=== PATIENT | female | born 1980 | race African-American/Black ===

== ENCOUNTER 2019-04-28 14:11 | Emergency (ER) | payer BC ==
[~2019-04-28] VITALS: Ht 170.2 cm; Wt 103.0 kg
[2019-04-28] MEDS ORDERED: IV NORMAL SALINE 1000ML BAG 1,000 ML IV SCH (14:54)
[2019-04-28] MEDS ORDERED: ONDANSETRON PF 4 MG/2 ML VIAL. IV ONE (15:00)
[2019-04-28] MEDS ORDERED: FAMOTIDINE 20 MG/2 ML VIAL IVP ONE (15:00)
[2019-04-28 15:12] LABS: BASO # 0.1 x10^3/uL (0.0-0.2); BASO % 2 % (0-3); EOS # 0.2 x10^3/uL (0.0-0.7); EOS % 4 % (0-3); HEMATOCRIT 34.2 % (36.0-47.0); HEMOGLOBIN 10.9 g/dL (12.0-15.5); LYMPH # 2.1 x10^3/uL (1.0-4.8); LYMPH % 37 % (24-48); MEAN CORPUSCULAR HEMOGLOBIN 22 pg (25-35); MEAN CORPUSCULAR HGB CONC 32 g/dL (31-37); MEAN CORPUSCULAR VOLUME 68 fL (79-100); MONO # 0.6 x10^3/uL (0.0-1.1); MONO % 11 % (0-9); NEUT # 2.6 x10^3/uL (1.8-7.7); NEUT % 46 % (31-73); PLATELET COUNT 417 x10^3/uL (140-400); RED BLOOD COUNT 5.05 x10^6/uL (3.50-5.40); RED CELL DISTRIBUTION WIDTH 15.3 % (11.5-14.5); WHITE BLOOD COUNT 5.6 x10^3/uL (4.0-11.0)
[2019-04-28 15:16] LABS: BILIRUBIN,URINE NEGATIVE (NEG); CLARITY,URINE CLEAR; COLOR,URINE YELLOW; NITRITE,URINE NEGATIVE (NEG); PH,URINE 6.5; PROTEIN,URINE NEGATIVE (NEG-TRACE)
--- NOTE | 2019-04-28 15:16 | PHYS DOC ---
Past Medical History Past Medical History: Diabetes-Type II Additional Past Surgical Histo: "foot surgery" Alcohol Use: None Adult General Chief Complaint Chief Complaint: GI PROBLEM HPI HPI Patient is a 39 year old female who presents with states 2 weeks ago she began having epigastric sharp pain and nausea and vomiting. She states she then got better. He states last night she ate cupcakes and went out to eat and had fried food and pizza wanings for her birthday. She states she began having came epigastric pain that is sharp and started nausea and vomiting again. States she's gone and vomited multiple times. She rates her pain an 8 out of 10. Review of Systems Review of Systems GI: Epigastric abdominal pain, nausea, vomiting, denies bloody stools or diarrhea [] ] All other systems were reviewed and found to be within normal limits, except as documented in this note. Current Medications Current Medications Current Medications Medications (Trade) Dose Ordered Sig/Kory Start Time Stop Time Status Last Admin Dose Admin Famotidine (Pepcid Vial) 20 mg 1X ONCE 04/28/19 15:00 04/28/19 15:01 DC 04/28/19 15:07 20 MG Iohexol (Omnipaque 300 Mg/ml) 75 ml 1X ONCE 04/28/19 15:45 04/28/19 15:46 DC 04/28/19 15:43 75 ML Multi-Ingredient Mouthwash/Gargle (Gi Cocktail) 20 ml 1X ONCE 04/28/19 16:45 04/28/19 16:46 DC Ondansetron HCl (Zofran) 4 mg 1X ONCE 04/28/19 16:45 04/28/19 16:46 DC Sodium Chloride 1,000 ml @ 1,000 mls/hr Q1H 04/28/19 14:54 04/28/19 15:53 DC 04/28/19 15:06 1,000 MLS/HR Allergies Allergies Allergies Coded Allergies Type Severity Reaction Last Updated Verified Sulfa (Sulfonamide Antibiotics) Allergy Mild rash 04/28/19 Yes Physical Exam Physical Exam Constitutional: Well developed, well nourished, no acute distress, non-toxic appearance. [] HENT: Normocephalic, atraumatic, bilateral external ears normal, oropharynx moist, no oral exudates, nose normal. [] Eyes: PERRLA, EOMI, conjunctiva normal, no discharge. [] Neck: Normal range of motion, no tenderness, supple, no stridor. [] Cardiovascular:Heart rate regular rhythm, no murmur [] Lungs & Thorax: Bilateral breath sounds clear to auscultation [] Abdomen: Bowel sounds normal, soft, no tenderness, no masses, no pulsatile masses. [] Skin: Warm, dry, no erythema, no rash. [] Back: No tenderness, no CVA tenderness. [] Extremities: No tenderness, no cyanosis, no clubbing, ROM intact, no edema. [] Neurologic: Alert and oriented X 3, normal motor function, normal sensory function, no focal deficits noted. [] Psychologic: Affect normal, judgement normal, mood normal. Normal physical exam findings [] Current Patient Data Vital Signs Vital Signs Date Time Temp Pulse Resp B/P (MAP) Pulse Ox O2 Delivery O2 Flow Rate FiO2 04/28/19 15:26 62 18 128/70 (89) 98 Room Air 04/28/19 14:29 98.1 98.1 Lab Values Laboratory Tests Test 04/28/19 14:25 04/28/19 14:36 04/28/19 14:40 04/28/19 14:46 Urine Collection Type Unknown Urine Color Yellow Urine Clarity Clear Urine pH 6.5 Urine Specific [place] 1.025 Urine Protein Negative mg/dL (NEG-TRACE) Urine Glucose (UA) Negative mg/dL (NEG) Urine Ketones (Stick) Negative mg/dL (NEG) Urine Blood Large (NEG) Urine Nitrite Negative (NEG) Urine Bilirubin Negative (NEG) Urine Urobilinogen Dipstick 1.0 mg/dL (0.2 mg/dL) Urine Leukocyte Esterase Negative (NEG) Urine RBC Occ /HPF (0-2) Urine WBC Rare /HPF (0-4) Urine Squamous Epithelial Cells Mod /LPF Urine Bacteria Few /HPF (0-FEW) Urine Mucus Mod /LPF Urine Opiates Screen Neg (NEG) Urine Methadone Screen Neg (NEG) Urine Barbiturates Neg (NEG) Urine Phencyclidine Screen Neg (NEG) Urine Amphetamine/Methamphetamine Neg (NEG) Urine Benzodiazepines Screen Neg (NEG) Urine Cocaine Screen Neg (NEG) Urine Cannabinoids Screen Neg (NEG) Urine Ethyl Alcohol Neg (NEG) Glucose (Fingerstick) 112 mg/dL (70-99) H White Blood Count 5.6 x10^3/uL (4.0-11.0) Red Blood Count 5.05 x10^6/uL (3.50-5.40) Hemoglobin 10.9 g/dL (12.0-15.5) L Hematocrit 34.2 % (36.0-47.0) L Mean Corpuscular Volume 68 fL (79-100) L Mean Corpuscular Hemoglobin 22 pg (25-35) L Mean Corpuscular Hemoglobin Concent 32 g/dL (31-37) Red Cell Distribution Width 15.3 % (11.5-14.5) H Platelet Count 417 x10^3/uL (140-400) H Neutrophils (%) (Auto) 46 % (31-73) Lymphocytes (%) (Auto) 37 % (24-48) Monocytes (%) (Auto) 11 % (0-9) H Eosinophils (%) (Auto) 4 % (0-3) H Basophils (%) (Auto) 2 % (0-3) Neutrophils # (Auto) 2.6 x10^3/uL (1.8-7.7) Lymphocytes # (Auto) 2.1 x10^3/uL (1.0-4.8) Monocytes # (Auto) 0.6 x10^3/uL (0.0-1.1) Eosinophils # (Auto) 0.2 x10^3/uL (0.0-0.7) Basophils # (Auto) 0.1 x10^3/uL (0.0-0.2) Platelet Estimate Adequate (ADEQUATE) Hypochromasia Slight Anisocytosis Mod Microcytosis Marked Target Cells Few Schistocytes Occ Sodium Level 143 mmol/L (136-145) Potassium Level 3.7 mmol/L (3.5-5.1) Chloride Level 104 mmol/L (98-107) Carbon Dioxide Level 30 mmol/L (21-32) Anion Gap 9 (6-14) Blood Urea Nitrogen 7 mg/dL (7-20) Creatinine 1.0 mg/dL (0.6-1.0) Estimated GFR (Cockcroft-Gault) 75.5 BUN/Creatinine Ratio 7 (6-20) Glucose Level 114 mg/dL (70-99) H Calcium Level 9.4 mg/dL (8.5-10.1) Total Bilirubin < 0.1 mg/dL (0.2-1.0) L Aspartate Amino Transferase (AST) 15 U/L (15-37) Alanine Aminotransferase (ALT) 12 U/L (14-59) L Alkaline Phosphatase 57 U/L (46-116) Troponin I Quantitative < 0.017 ng/mL (0.000-0.055) Total Protein 7.7 g/dL (6.4-8.2) Albumin 3.4 g/dL (3.4-5.0) Albumin/Globulin Ratio 0.8 (1.0-1.7) L Lipase 322 U/L (73-393) POC Urine HCG, Qualitative Hcg negative (Negative) Laboratory Tests 04/28/19 14:40 Laboratory Tests 04/28/19 14:40 EKG EKG Sinus Rhythm and no STEMI[] Interpretation Time: [address] Parson Radiology/Procedures Radiology/Procedures [] Impressions: [facility] [address] [place], [place] [id number] IMAGING REPORT Signed PATIENT: MILI HILL ACCOUNT: [id number] : 1980 LOCATION: ER AGE: 39 SEX: F EXAM STATUS: REG ER ORD. PHYSICIAN: IESHA GRIMES APRN REASON: epigastric pain and vomiting PROCEDURE: CT ABD PELV W/ IV CONTRST ONLY CT ABD PELV W/ IV CONTRST ONLY History: Epigastric pain. Vomiting. Technique: After the administration of intravenous contrast, CT imaging was performed of the abdomen and pelvis. Multiplanar images are reviewed. Exposure: One or more of the following individualized dose reduction techniques were utilized for this examination: 1. Automated exposure control 2. Adjustment of the mA and/or kV according to patient size 3. Use of iterative reconstruction technique. Comparison: None Findings: Lower chest: No consolidation or pleural effusion. Abdomen and pelvis: Cholelithiasis. Mild gallbladder wall thickening. No biliary ductal dilatation. Patent portal veins. The liver, spleen, adrenal glands, and pancreas are unremarkable. Normal appearance the kidneys. No hydronephrosis. Normal appendix. No evidence of bowel obstruction. No pathologic lymphadenopathy. No ascites. Enlarged uterus with heterogeneous masses largest on the left difficult to measure approximately 8.9 x 9.4 cm. Decompressed urinary bladder. Bones: No pathologic osseous lesions. Impression: 1. Cholelithiasis with mild gallbladder wall thickening. Recommend ultrasound to further evaluate. 2. Enlarged uterus with multiplemasses, likely fibroids. Electronically signed by: Henrique Baez DO (04/28/2019 4:05 PM) [place] [id number] DICTATED and SIGNED BY: HENRIQUE BAEZ DO DATE: 04/28/19 [address] [place] [address] IMAGING REPORT Signed PATIENT: MILI HILL ACCOUNT: [id number] : 1980 LOCATION: ER AGE: 39 SEX: F EXAM STATUS: REG ER ORD. PHYSICIAN: IESHA GRIMES APRN REASON: Chest pain, PROCEDURE: CHEST PA & LATERAL EXAM: Chest, 2 views. HISTORY: Chest pain. COMPARISON: None. FINDINGS: 2 views of the chest are obtained. No infiltrate, pleural effusion or pneumothorax. The heart is normal in size. IMPRESSION: No acute pulmonary finding. Electronically signed by: Carolynn Crow MD (04/28/2019 3:59 PM) [facility] [place]ATED and SIGNED BY: CAROLYNN CROW MD DATE: 04/28/[address] [id number] IMAGING REPORT Signed PATIENT: MILI HILL ACCOUNT: [id number] : 1980 LOCATION: ER AGE: 39 SEX: F EXAM STATUS: REG ER ORD. PHYSICIAN: IESHA GRIMES APRN REASON: EPIGASTRIC PAIN, N/V, POSSIBLE GALLSTONES ON CT PROCEDURE: ABDOMEN LTD Examination: ABDOMEN LTD History: Epigastric pain, nausea and vomiting Comparison/Correlation: 04/28/2019 CT Abd and Pelvis with contrast Findings: Right upper quadrant ultrasound examination was performed. Hepatic echotexture is normal. At least one 0.6 cm diameter calculus is present in the gallbladder. Debris in the gallbladder is minimal. Normal gallbladder wall thickness. No pericholecystic fluid. No biliary dilatation. Sonographic James's sign is present. Portal venous flow is normal. Liver is mildly enlarged measuring 20.7 cm longitudinal. Right kidney measures 11.5 cm x 5.6 cm x 4 point tracer. No right hydronephrosis. Right renal cortical thinning is mild. Pancreas is obscured by bowel gas. Inferior vena cava and abdominal aorta are obscured by bowel gas. Impression: Cholelithiasis. Debris in the gallbladder. Sonographic James's sign. No biliary dilatation. Hepatomegaly. Electronically signed by: Addison Mcadams MD (04/28/2019 4:50 PM) [id number] DICTATED and SIGNED BY: ADDISON MCADAMS MD DATE: 04/28/191649 Course & Med Decision Making Course & Med Decision Making Alert and oriented. Speaks in full clear sentences. Skin pink warm and dry. Abdomen is soft and nontender. Ambulatory with a steady gait. Patient denies chest pain, shortness of breath, diarrhea, fever, dysuria, back pain, dizziness, headache, numbness or tingling, visual changes, weakness. No extremity edema. Vital signs within normal limits. There is no blood in her vomit and she did vomit in the emergency room. Patient denies any blood in her vomit. Dragon Disclaimer Dragon Disclaimer This electronic medical record was generated, in whole or in part, using a voice recognition dictation system. Departure Departure Impression: Primary Impression: Cholelithiasis Disposition: 01 HOME, SELF-CARE Condition: STABLE Referrals: UNKNOWN PCP NAME (PCP) MARTINA FLORENCE MD Patient Instructions: Cholelithiasis Additional Instructions: Call and make a appointment with Dr Florence. Stay away from spicy and fatty foods. Take medications as prescribed. Scripts Hydrocodone/Apap 5-325 (NORCO 5-325 TABLET) 1 Each Tablet 1 TAB PO PRN Q6HRS PRN for PAIN, #10 TAB 0 Refills Prov: IESHA GRIMES APRN 04/28/19 Ondansetron (ONDANSETRON ODT) 4 Mg Tab.rapdis 1 TAB PO PRN Q6-8HRS, #20 TAB Prov: IESHA GRIMES APRN 04/28/19 Famotidine (PEPCID) 20 Mg Tablet 20 MG PO BID, #30 TAB Prov: IESHA GRIMES ENGINEERING RECRUITER 04/28/19 Problem Qualifiers Primary Impression: Cholelithiasis Cholelithiasis location: gallbladder Cholecystitis presence: without cholecystitis Biliary obstruction: without biliary obstruction Qualified Codes: K80.20 - Calculus of gallbladder without cholecystitis without obstru ction IESHA GRIMES ENGINEERING RECRUITER Apr 28, 2019 15:16
[2019-04-28 15:27] LABS: ANION GAP 9 (6-14); BLOOD UREA NITROGEN 7 mg/dL (7-20); BUN/CREATININE RATIO 7 (6-20); CALCIUM 9.4 mg/dL (8.5-10.1); CARBON DIOXIDE 30 mmol/L (21-32); CHLORIDE 104 mmol/L (98-107); GFR 75.5; GLUCOSE 114 mg/dL (70-99); POTASSIUM 3.7 mmol/L (3.5-5.1); SODIUM 143 mmol/L (136-145)
[2019-04-28 15:27] LABS: BACTERIA,URINE FEW /HPF (0-FEW); RBC,URINE OCC /HPF (0-2); SQUAMOUS EPITHELIAL CELL,UR MOD /LPF; WBC,URINE RARE /HPF (0-4)
[2019-04-28 15:29] LABS: ALBUMIN 3.4 g/dL (3.4-5.0); ALBUMIN/GLOBULIN RATIO 0.8 (1.0-1.7); ALK PHOS 57 U/L (46-116); ALT (SGPT) 12 U/L (14-59); AST (SGOT) 15 U/L (15-37); LIPASE 322 U/L (73-393); TOTAL BILIRUBIN < 0.1 mg/dL (0.2-1.0); TOTAL PROTEIN 7.7 g/dL (6.4-8.2)
[2019-04-28 15:31] LABS: BARBITURATES NEG (NEG); BENZODIAZEPINES NEG (NEG); CANNABINOIDS NEG (NEG); COCAINE NEG (NEG); METHADONE NEG (NEG); OPIATES NEG (NEG); PHENCYCLIDINE NEG (NEG)
[2019-04-28 15:35] LABS: AMPHETAMINE/METHAMPHETAMINE NEG (NEG)
[2019-04-28 15:45] LABS: ANISOCYTOSIS MOD; HYPOCHROMIA SLIGHT; MICROCYTOSIS MARKED; PLT ESTIMATE ADEQUATE (ADEQUATE)
[2019-04-28] MEDS ORDERED: IOHEXOL 300 MG/ML 100ML VIAL. IV ONE (15:45)
[2019-04-28 15:46] LABS: SCHISTOCYTES OCC; TARGET CELLS FEW
--- NOTE | 2019-04-28 16:01 | RAD ---
EXAM: Chest, 2 views. HISTORY: Chest pain. COMPARISON: None. FINDINGS: 2 views of the chest are obtained. No infiltrate, pleural effusion or pneumothorax. The heart is normal in size. IMPRESSION: No acute pulmonary finding. Electronically signed by: Carolynn Barrow MD (04/28/2019 3:59 PM) [facility] [place]
--- NOTE | 2019-04-28 16:08 | RAD ---
CT ABD PELV W/ IV CONTRST ONLY History: Epigastric pain. Vomiting. Technique: After the administration of intravenous contrast, CT imaging was performed of the abdomen and pelvis. Multiplanar images are reviewed. Exposure: One or more of the following individualized dose reduction techniques were utilized for this examination: 1. Automated exposure control 2. Adjustment of the mA and/or kV according to patient size 3. Use of iterative reconstruction technique. Comparison: None Findings: Lower chest: No consolidation or pleural effusion. Abdomen and pelvis: Cholelithiasis. Mild gallbladder wall thickening. No biliary ductal dilatation. Patent portal veins. The liver, spleen, adrenal glands, and pancreas are unremarkable. Normal appearance the kidneys. No hydronephrosis. Normal appendix. No evidence of bowel obstruction. No pathologic lymphadenopathy. No ascites. Enlarged uterus with heterogeneous masses largest on the left difficult to measure approximately 8.9 x 9.4 cm. Decompressed urinary bladder. Bones: No pathologic osseous lesions. Impression: 1. Cholelithiasis with mild gallbladder wall thickening. Recommend ultrasound to further evaluate. 2. Enlarged uterus with multiplemasses, likely fibroids. Electronically signed by: Henrique Baez DO (04/28/2019 4:05 PM) [id number]
--- NOTE | 2019-04-28 16:44 | EKG ---
[facility] [address] [place] [address] Test Date: 2019-04-28 Test Time: 15:19:11 Pat Name: MILI HILL Department: Room: Gender: F Offset Pressman: : 1980 Requested By: IESHA GRIMES Order Number: [id number] Reading MD: Measurements Intervals [place] Rate: 60 P: 64 CA: 168 QRS: 56 QRSD: 92 T: 30 QT: 408 QTc: 412 Interpretive Statements SINUS RHYTHM NORMAL ECG RI6.01 No previous ECG available for comparison
[2019-04-28] MEDS ORDERED: ONDANSETRON PF 4 MG/2 ML VIAL. IVP ONE (16:45)
[2019-04-28] MEDS ORDERED: LIDO:MAALOX 1:1 20 ML SINGLE DOSE. SWSW ONE (16:45)
--- NOTE | 2019-04-28 16:53 | RAD ---
Examination: ABDOMEN LTD History: Epigastric pain, nausea and vomiting Comparison/Correlation: 04/28/2019 CT Abd and Pelvis with contrast Findings: Right upper quadrant ultrasound examination was performed. Hepatic echotexture is normal. At least one 0.6 cm diameter calculus is present in the gallbladder. Debris in the gallbladder is minimal. Normal gallbladder wall thickness. No pericholecystic fluid. No biliary dilatation. Sonographic James's sign is present. Portal venous flow is normal. Liver is mildly enlarged measuring 20.7 cm longitudinal. Right kidney measures 11.5 cm x 5.6 cm x 4 point tracer. No right hydronephrosis. Right renal cortical thinning is mild. Pancreas is obscured by bowel gas. Inferior vena cava and abdominal aorta are obscured by bowel gas. Impression: Cholelithiasis. Debris in the gallbladder. Sonographic James's sign. No biliary dilatation. Hepatomegaly. Electronically signed by: Addison Camp MD (04/28/2019 4:50 PM) [id number]
[2019-04-28 16:57] VITALS: BP 138/62
[2019-04-28] MEDS ORDERED: ONDA4TAB12 PO (17:04)
[2019-04-28] MEDS ORDERED: FAMO-63 PO (17:04)
[2019-04-28] MEDS ORDERED: HYDR-3164 PO (17:04)
== END 2019-04-28 17:19 | disposition home or self-care (01) ==
LOC: ER 14:11
DX: K80.20 Calculus of gallbladder without cholecystitis without obstruction (principal); R11.2 Nausea with vomiting, unspecified; R10.13 Epigastric pain; E11.9 Type 2 diabetes mellitus without complications; Z98.890 Other specified postprocedural states; Z88.2 Allergy status to sulfonamides; Z79.899 Other long term (current) drug therapy
CPT/HCPCS: 36415; 71046; 74177; 76705; 80053; 80307; 81001; 81025; 82962; 83690; 84484; 85025; 93005; 96361; 96374; 96375; 96376; 99285; J2405; J3490; J7030; Q9967

== ENCOUNTER 2019-05-09 14:31 | Emergency (ER) | payer BC ==
[~2019-05-09] VITALS: Ht 170.2 cm; Wt 100.0 kg
[~2019-05-09 14:31] MED LIST: FAMO-63 PO; HYDR-3164 PO; ONDA4TAB12 PO
[2019-05-09] MEDS ORDERED: MORPHINE SULFATE 10 MG/ML VIAL. IV STA (15:08)
[2019-05-09] MEDS ORDERED: ONDANSETRON PF 4 MG/2 ML VIAL. IV ONE (15:15)
[2019-05-09] MEDS ORDERED: IV NORMAL SALINE 1000ML BAG 1,000 ML IV ONE (15:15)
--- NOTE | 2019-05-09 15:17 | PHYS DOC ---
Past Medical History Past Medical History: Diabetes-Type II Additional Past Surgical Histo: "foot surgery" Smoking Status: Never Smoker Alcohol Use: None Adult General Chief Complaint Chief Complaint: ABDOMINAL PAIN HPI HPI Patient is a 39 year old female who presents with abdominal pain after going to [place] and eating a [employer]. The patient is being seen by general surgery as she's been having problems with her gallbladder. She was supposed to have a scope on Thursday to determine whether her gallbladder needs to remove. She was seen in the ER on April 28. In that visit she had eaten cupcakes and she had abdominal pain and then she was found have cholelithiasis. The patient rates her pain 10 out of 10 in severity and sharp. The pain is located in the right upper quadrant of her stomach. Denies nausea. Complete ROS were reviewed and found to be within normal limits, except as documented in the HPI Current Medications Current Medications Current Medications Medications (Trade) Dose Ordered Sig/Kory Start Time Stop Time Status Last Admin Dose Admin Morphine Sulfate (Morphine Sulfate) 5 mg 1X STAT 05/09/19 15:08 05/09/19 15:14 DC 05/09/19 15:33 5 MG Ondansetron HCl (Zofran) 4 mg 1X ONCE 05/09/19 15:15 05/09/19 15:16 DC 05/09/19 15:32 4 MG Sodium Chloride 1,000 ml @ 1,000 mls/hr 1X ONCE 05/09/19 15:15 05/09/19 16:14 DC 05/09/19 15:32 1,000 MLS/HR Allergies Allergies Allergies Coded Allergies Type Severity Reaction Last Updated Verified Sulfa (Sulfonamide Antibiotics) Allergy Mild rash 05/06/19 Yes Physical Exam Physical Exam Constitutional: Well developed, well nourished, no acute distress, non-toxic appearance. [] HENT: Normocephalic, atraumatic, bilateral external ears normal, oropharynx moist, no oral exudates, nose normal. [] Eyes: PERRLA, EOMI, conjunctiva normal, no discharge. [] Neck: Normal range of motion, no tenderness, supple, no stridor. [] Cardiovascular:Heart rate regular rhythm, no murmur [] Lungs & Thorax: Bilateral breath sounds clear to auscultation [] Abdomen: Bowel sounds normal, soft, RUQ tenderness on palpation, no masses, no pulsatile masses. [] Skin: Warm, dry, no erythema, no rash. [] Neurologic: Alert and oriented X 3, normal motor function, normal sensory function, no focal deficits noted. [] Psychologic: Affect normal, judgement normal, mood normal. [] Current Patient Data Vital Signs Vital Signs Date Time Temp Pulse Resp B/P (MAP) Pulse Ox O2 Delivery O2 Flow Rate FiO2 05/09/19 15:33 18 98 Room Air 05/09/19 14:31 99.3 68 130/64 (86) 99.3 Lab Values Laboratory Tests Test 05/09/19 15:10 05/09/19 15:29 White Blood Count 5.2 x10^3/uL (4.0-11.0) Red Blood Count 5.01 x10^6/uL (3.50-5.40) Hemoglobin 10.8 g/dL (12.0-15.5) L Hematocrit 33.9 % (36.0-47.0) L Mean Corpuscular Volume 68 fL (79-100) L Mean Corpuscular Hemoglobin 22 pg (25-35) L Mean Corpuscular Hemoglobin Concent 32 g/dL (31-37) Red Cell Distribution Width 15.6 % (11.5-14.5) H Platelet Count 416 x10^3/uL (140-400) H Neutrophils (%) (Auto) 52 % (31-73) Lymphocytes (%) (Auto) 36 % (24-48) Monocytes (%) (Auto) 7 % (0-9) Eosinophils (%) (Auto) 3 % (0-3) Basophils (%) (Auto) 1 % (0-3) Neutrophils # (Auto) 2.7 x10^3/uL (1.8-7.7) Lymphocytes # (Auto) 1.9 x10^3/uL (1.0-4.8) Monocytes # (Auto) 0.4 x10^3/uL (0.0-1.1) Eosinophils # (Auto) 0.1 x10^3/uL (0.0-0.7) Basophils # (Auto) 0.1 x10^3/uL (0.0-0.2) Sodium Level 138 mmol/L (136-145) Potassium Level 4.1 mmol/L (3.5-5.1) Chloride Level 101 mmol/L (98-107) Carbon Dioxide Level 29 mmol/L (21-32) Anion Gap 8 (6-14) Blood Urea Nitrogen 7 mg/dL (7-20) Creatinine 1.1 mg/dL (0.6-1.0) H Estimated GFR (Cockcroft-Gault) 67.6 BUN/Creatinine Ratio 6 (6-20) Glucose Level 99 mg/dL (70-99) Calcium Level 9.1 mg/dL (8.5-10.1) Total Bilirubin 0.1 mg/dL (0.2-1.0) L Aspartate Amino Transferase (AST) 25 U/L (15-37) Alanine Aminotransferase (ALT) 17 U/L (14-59) Alkaline Phosphatase 55 U/L (46-116) Total Protein 8.1 g/dL (6.4-8.2) Albumin 3.6 g/dL (3.4-5.0) Albumin/Globulin Ratio 0.8 (1.0-1.7) L Lipase 369 U/L (73-393) Urine Color Yellow Urine Clarity Clear Urine pH 5.5 Urine Specific [place] 1.015 Urine Protein Negative mg/dL (NEG-TRACE) Urine Glucose (UA) Negative mg/dL (NEG) Urine Ketones (Stick) Negative mg/dL (NEG) Urine Blood Negative (NEG) Urine Nitrite Negative (NEG) Urine Bilirubin Negative (NEG) Urine Urobilinogen Dipstick 0.2 mg/dL (0.2 mg/dL) Urine Leukocyte Esterase Negative (NEG) Urine RBC 0 /HPF (0-2) Urine WBC Occ /HPF (0-4) Urine Squamous Epithelial Cells Occ /LPF Urine Bacteria Few /HPF (0-FEW) Urine Mucus Mod /LPF Laboratory Tests 05/09/19 15:10 Laboratory Tests 05/09/19 15:10 EKG EKG [] Radiology/Procedures Radiology/Procedures [] [address] [place] [address] IMAGING REPORT Signed PATIENT: MILI HILL ACCOUNT: [id number] : 1980 LOCATION: ER AGE: 39 SEX: F EXAM STATUS: REG ER ORD. PHYSICIAN: IESHA GRIMES APRN REASON: epigastric pain and vomiting PROCEDURE: CT ABD PELV W/ IV CONTRST ONLY CT ABD PELV W/ IV CONTRST ONLY History: Epigastric pain. Vomiting. Technique: After the administration of intravenous contrast, CT imaging was performed of the abdomen and pelvis. Multiplanar images are reviewed. Exposure: One or more of the following individualized dose reduction techniques were utilized for this examination: 1. Automated exposure control 2. Adjustment of the mA and/or kV according to patient size 3. Use of iterative reconstruction technique. Comparison: None Findings: Lower chest: No consolidation or pleural effusion. Abdomen and pelvis: Cholelithiasis. Mild gallbladder wall thickening. No biliary ductal dilatation. Patent portal veins. The liver, spleen, adrenal glands, and pancreas are unremarkable. Normal appearance the kidneys. No hydronephrosis. Normal appendix. No evidence of bowel obstruction. No pathologic lymphadenopathy. No ascites. Enlarged uterus with heterogeneous masses largest on the left difficult to measure approximately 8.9 x 9.4 cm. Decompressed urinary bladder. Bones: No pathologic osseous lesions. Impression: 1. Cholelithiasis with mild gallbladder wall thickening. Recommend ultrasound to further evaluate. 2. Enlarged uterus with multiplemasses, likely fibroids. Electronically signed by: Henrique Baez DO (04/28/2019 4:05 PM) [facility] DICTATED and SIGNED BY: HENRIQUE BAEZ DO DATE: 04/28/19 [address] [place] [address] IMAGING REPORT Signed PATIENT: MILI HILL ACCOUNT: [id number] : 1980 LOCATION: ER AGE: 39 SEX: F EXAM STATUS: REG ER ORD. PHYSICIAN: IESHA GRIMES APRN REASON: Chest pain, PROCEDURE: CHEST PA & LATERAL EXAM: Chest, 2 views. HISTORY: Chest pain. COMPARISON: None. FINDINGS: 2 views of the chest are obtained. No infiltrate, pleural effusion or pneumothorax. The heart is normal in size. IMPRESSION: No acute pulmonary finding. Electronically signed by: Carolynn Crow MD (04/28/2019 3:59 PM) [facility] [place] DICTATED and SIGNED BY: CAROLYNN CROW MD DATE: 04/28/19 [address] [place] [address] IMAGING REPORT Signed PATIENT: MILI HILL ACCOUNT: [id number] : 1980 LOCATION: ER AGE: 39 SEX: F EXAM STATUS: REG ER ORD. PHYSICIAN: IESHA GRIMES APRN REASON: EPIGASTRIC PAIN, N/V, POSSIBLE GALLSTONES ON CT PROCEDURE: ABDOMEN LTD Examination: ABDOMEN LTD History: Epigastric pain, nausea and vomiting Comparison/Correlation: 04/28/2019 CT Abd and Pelvis with contrast Findings: Right upper quadrant ultrasound examination was performed. Hepatic echotexture is normal. At least one 0.6 cm diameter calculus is present in the gallbladder. Debris in the gallbladder is minimal. Normal gallbladder wall thickness. No pericholecystic fluid. No biliary dilatation. Sonographic James's sign is present. Portal venous flow is normal. Liver is mildly enlarged measuring 20.7 cm longitudinal. Right kidney measures 11.5 cm x 5.6 cm x 4 point tracer. No right hydronephrosis. Right renal cortical thinning is mild. Pancreas is obscured by bowel gas. Inferior vena cava and abdominal aorta are obscured by bowel gas. Impression: Cholelithiasis. Debris in the gallbladder. Sonographic James's sign. No biliary dilatation. Hepatomegaly. Electronically signed by: Addison Mcadams MD (04/28/2019 4:50 PM) [id number] DICTATED and SIGNED BY: ADDISON MCADAMS MD DATE: 04/28/19 0821 Course & Med Decision Making Course & Med Decision Making Pertinent Labs and Imaging studies reviewed. (See chart for details) Will get labs and then will give supportive care. Labs are unremarkable for acute changes. Patient is feeling better after medication and has [place] and Zofran at home. Will have her follow up for appointment on Thursday. Dragon Disclaimer Dragon Disclaimer This electronic medical record was generated, in whole or in part, using a voice recognition dictation system. Departure Departure Impression: Primary Impression: Abdominal pain Disposition: HOME, SELF-CARE Condition: STABLE Referrals: UNKNOWN PCP NAME (PCP) Additional Instructions: Thank you for visiting [facility]. We appreciate you trusting us with your care. If any additional problems come up don't hesitate to return to visit us. Please follow up with your primary care provider so they can plan additional care if needed and know about the problem that you had. If symptoms worsen come back to the Emergency Department. Any concerning symptoms that start such as chest pain, shortness of air, weakness or numbness on one side of the body, running high fevers or any other concerning symptoms return to the ER. Please keep appointment for the scope on Thursday as originally scheduled. Problem Qualifiers Primary Impression: Abdominal pain Abdominal location: right upper quadrant Qualified Codes: R10.11 - Right upper quadrant pain LEONOR CARPIO APRN May 09, 2019 15:16
[2019-05-09 15:40] LABS: CALCIUM 9.1 mg/dL (8.5-10.1); CREATININE 1.1 mg/dL (0.6-1.0); GFR 67.6; POTASSIUM 4.1 mmol/L (3.5-5.1)
[2019-05-09 15:46] LABS: ALBUMIN 3.6 g/dL (3.4-5.0); ALBUMIN/GLOBULIN RATIO 0.8 (1.0-1.7); TOTAL BILIRUBIN 0.1 mg/dL (0.2-1.0); TOTAL PROTEIN 8.1 g/dL (6.4-8.2)
[2019-05-09 16:00] LABS: BASO # 0.1 x10^3/uL (0.0-0.2); BASO % 1 % (0-3); EOS # 0.1 x10^3/uL (0.0-0.7); EOS % 3 % (0-3); HEMATOCRIT 33.9 % (36.0-47.0); HEMOGLOBIN 10.8 g/dL (12.0-15.5); LYMPH # 1.9 x10^3/uL (1.0-4.8); LYMPH % 36 % (24-48); MEAN CORPUSCULAR HEMOGLOBIN 22 pg (25-35); MEAN CORPUSCULAR HGB CONC 32 g/dL (31-37); MEAN CORPUSCULAR VOLUME 68 fL (79-100); MONO # 0.4 x10^3/uL (0.0-1.1); MONO % 7 % (0-9); NEUT # 2.7 x10^3/uL (1.8-7.7); NEUT % 52 % (31-73); PLATELET COUNT 416 x10^3/uL (140-400); RED BLOOD COUNT 5.01 x10^6/uL (3.50-5.40); RED CELL DISTRIBUTION WIDTH 15.6 % (11.5-14.5); WHITE BLOOD COUNT 5.2 x10^3/uL (4.0-11.0)
[2019-05-09 16:02] LABS: BILIRUBIN,URINE NEGATIVE (NEG); CLARITY,URINE CLEAR; COLOR,URINE YELLOW; NITRITE,URINE NEGATIVE (NEG); PH,URINE 5.5; PROTEIN,URINE NEGATIVE (NEG-TRACE); UROBILINOGEN,URINE 0.2 mg/dL (0.2 mg/dL)
[2019-05-09 16:18] LABS: BACTERIA,URINE FEW /HPF (0-FEW); RBC,URINE 0 /HPF (0-2); SQUAMOUS EPITHELIAL CELL,UR OCC /LPF; WBC,URINE OCC /HPF (0-4)
[2019-05-09 16:38] VITALS: BP 132/64
[2019-05-09 17:33] LABS: HYPOCHROMIA SLIGHT; PLT ESTIMATE INCREASED (ADEQUATE)
[2019-05-09 17:34] LABS: ANISOCYTOSIS SLIGHT; MICROCYTOSIS SLIGHT; STOMATOCYTES OCC
[2019-05-12] MEDS ORDERED: FLUO20CA16 PO (11:48)
== END 2019-05-09 16:40 | disposition home or self-care (01) ==
LOC: ER 14:31
DX: R10.11 Right upper quadrant pain (principal); E11.9 Type 2 diabetes mellitus without complications; Z98.890 Other specified postprocedural states; Z88.2 Allergy status to sulfonamides
CPT/HCPCS: 36415; 80053; 81001; 83690; 85025; 96374; 96375; 99284; J2270; J2405; J7030

== ENCOUNTER → 2019-05-11 | Day surgery (SDC) | payer BC ==
[~2019-05-11] MED LIST changes: +FLUO20CA16 PO; +HYDROmorphone 2 MG/ML VIAL IV PRN; +IV RINGERS,LACTATED 1000ML 1,000 ML IV SCH; +LIDOCAINE 1% PF 2 ML VIAL. ID PRN; +LIDOCAINE 2% PF 5 ML VIAL. ONE; +MORPHINE SULFATE 2 MG/ML VIAL. IV PRN; +ONDANSETRON PF 4 MG/2 ML VIAL. IV PRN; +PROCHLORPERAZINE 10 MG/2 ML VIAL. IV PRN; +PROPOFOL 40 ML IV ONE; +fentaNYL PF VIAL 100 MCG/2 ML VIAL IV PRN
[2019-05-11 11:38] VITALS: BP 136/99
--- NOTE | 2019-05-12 17:06 | PATHOLOGY ---
[facility] Accession Number: [id number] . 01 Material submitted: . stomach - ANTRAL BIOPSY . 01 Clinical history: . ABD pain, R/O H.pylori . 02 Diagnosis: Gastric biopsy, antrum: - Active chronic gastritis, moderate, with Helicobacter organisms identified. (JPM:[facility] 05/12/2019) [facility] 05/12/2019 0915 Local . 02 Comment: Sections of the gastric biopsy reveal gastric antral/body transition mucosa showing moderate active chronic inflammation. A properly controlled immunoperoxidase stain for Helicobacter reveals the presence of Helicobacter organisms. There is no evidence of malignancy. (JPM:[facility] 05/12/2019) . Special stain performed: Immunoperoxidase for Helicobacter . 02 Electronically signed: . Jeremy Thacker MD, Pathologist NPI- [id number] . 01 Gross description: . The specimen is received in formalin, labeled "Emily Doss", "antral biopsy". Received is a single segment of pale ramirez soft tissue measuring 0.4 cm. The specimen is entirely submitted in cassette A1.([facility]; 05/11/2019) BASS[facility]/MICHAEL 05/11/2019 1703 Local . 02 Pathologist provided ICD-10: K29.50, B96.81 . 02 CPT . 104310, Q12931 Specimen Comment: A courtesy copy of this report has been sent to [phone] Specimen Comment: [id number] Specimen Comment: Report sent to and Performed at: 01 [facility] [address], [place], [place] [id number] MD Jero Urrutia MD Phone: [phone] Performed at: 02 [facility] [address] [place], [place] [id number] MD Jeremy Thacker MD Phone: [phone]
== END ==
LOC: ENDOS 10:19
PROVIDERS: ATTEND Surgery
DX: R10.13 Epigastric pain (principal); K29.50 Unspecified chronic gastritis without bleeding; E11.9 Type 2 diabetes mellitus without complications; Z88.1 Allergy status to other antibiotic agents; Z79.84 Long term (current) use of oral hypoglycemic drugs
CPT/HCPCS: 43239; 81025; 88305; 88342; J2001; J2704

== ENCOUNTER 2019-05-17 10:29 | Day surgery (SDC) | payer BC ==
[~2019-05-17] VITALS: Ht 154.9 cm; Wt 101.0 kg
[~2019-05-17 10:29] MED LIST changes: -IV RINGERS,LACTATED 1000ML 1,000 ML IV SCH; -LIDOCAINE 2% PF 5 ML VIAL. ONE; -PROPOFOL 40 ML IV ONE
[2019-05-17] MEDS ORDERED: ROCURONIUM 50 MG/5 ML VIAL. ONE (10:59)
[2019-05-17] MEDS ORDERED: MIDAZOLAM HCL/PF 2 MG/2 ML VIAL. ONE (10:59)
[2019-05-17] MEDS ORDERED: PROPOFOL 20 ML IV ONE (10:59)
[2019-05-17] MEDS ORDERED: FAMOTIDINE 20 MG/2 ML VIAL ONE (10:59)
[2019-05-17] MEDS ORDERED: ONDANSETRON PF 4 MG/2 ML VIAL. ONE (10:59)
[2019-05-17] MEDS ORDERED: LIDOCAINE 2% PF 5 ML VIAL. ONE (10:59)
[2019-05-17] MEDS ORDERED: fentaNYL PF VIAL 100 MCG/2 ML VIAL ONE (10:59)
[2019-05-17] MEDS ORDERED: DEXAMETHASONE SOD PHOS 4 MG/ML VIAL ONE (10:59)
[2019-05-17] MEDS: IV RINGERS,LACTATED 1000ML 1,000 ML IV SCH ×2 (11:08→13:18)
[2019-05-17] MEDS ORDERED: ACETAMINOPHEN 500 MG TABLET PO ONE ×2 (11:10→11:15)
[2019-05-17] MEDS ORDERED: IOHEXOL 300 MG/ML 50 ML VIAL. ONE (11:31)
[2019-05-17] MEDS ORDERED: SURGICEL HEMOSTAT 4X8 EACH. ONE (11:31)
[2019-05-17] MEDS ORDERED: BUPIVACAINE-EPI 0.25%-1:200000 MPF 30 ML VIAL. ONE (11:31)
[2019-05-17] MEDS ORDERED: BUPIVACAINE-EPI 0.5%-1:200000 MPF 30 ML VIAL. INJ ONE (12:03)
[2019-05-17] MEDS ORDERED: GLYCOPYRROLATE 1 MG/5 ML VIAL. ONE (12:09)
[2019-05-17] MEDS ORDERED: NEOSTIGMINE METHYLSULFATE 5 MG/5 ML SYRINGE. ONE (12:09)
[2019-05-17] MEDS ORDERED: KETOROLAC 30 MG/ML VIAL. ONE (12:21)
[2019-05-17] MEDS ORDERED: SEVOFLURANE 31 TO 60 MINUTES. IH ONE (12:24)
--- NOTE | 2019-05-17 12:30 | PDOC4 ---
Operative Note Operative Note Date: 05/17/2019 Preoperative diagnosis: Chronic cholecystitis Postoperative diagnosis: Same Procedure: Laparoscopic cholecystectomy Surgeon: Naman Specimen: Gallbladder Dictation: Patient is a 39-year-old female is complained of right upper quadrant to epigastric abdominal pain. Ultrasound did show gallstones no inflammatory changes around the gallbladder she underwent EGD which showed some mild duodenitis but nothing severe. Procedure of laparoscopic cholecystectomy was explained to the patient detail risk benefits were also discussed including bleeding infection injury to intra-abdominal contents possibly necessitating further or open operations alternatives to this procedure also discussed with the patient who seemed to understand and gave both verbal and written consent had the procedure performed. Patient was taken to the operating room placed in supine position general anesthesia was initiated once patient was sleep and intubated her abdomen was prepped and draped usual sterile fashion using ChloraPrep. An area just below the umbilicus was injected with quarter percent Marcaine with epinephrine incision was made with 11 blade scalpel varies needle was placed within the abdomen creating pneumoperitoneum once this was complete 11 mm port was placed and 5 mill meter camera was placed within the abdomen which was inspected no other abdomen maladies were noted. A 5 mm port was placed in the epigastrium one in the right mid abdomen and one in the right lateral abdomen. The dome of the gallbladder is grasped retracted cephalad the infundibulum of the gallbladder is grasped retracted laterally exposing the triangle adherent tissues the triangle were taken down blunt and sharp dissection exposing the cystic duct and cystic artery both were doubly clipped and transected the gallbladder was taken off the liver with hook electrocautery placed in Endo Catch bag and removed from the umbilicus right upper quadrant was irrigated and suctioned dry hemostasis deemed to be appropriate and the pneumoperitoneum was reduced all ports removed fascial defect at the umbilicus was closed with [id number] 0 Vicryl suture and the skin was approximated all port sites with for septic and a Monocryl Mastisol Steri-Strips and island dressings were applied. Patient was awakened and extubated in operating room taken to recovery in stable condition all sponge instrument needle counts listed as correct estimated blood loss 5 mL MARTINA CAMPUZANO MD May 17, 2019 12:30
--- NOTE | 2019-05-17 12:32 | DISCH ---
DISCHARGE INSTRUCTIONS Condition on Discharge Condition on Discharge: Stable Activity After Discharge Activity Instructions for Disc: Avoid exertion Other activity instructions: no lifting more than 20 pounds for 2 weeks Diet after Discharge Diet after Discharge: Low Fat Wound Incision Care Other wound/incision instructi: shower in 24 hours Contacting the DRTang after DC Call your doctor for: If your condition worsens Follow-Up Follow up with: Dr. Campuzano in 2 weeks MARTINA CAMPUZANO MD May 17, 2019 12:32
[2019-05-17] MEDS: fentaNYL PF VIAL 100 MCG/2 ML VIAL IV PRN ×2 (12:55→13:46)
[2019-05-17] MEDS ORDERED: OXYC-325 PO (13:17)
[2019-05-17] MEDS ORDERED: LANS30CA PO (13:21)
[2019-05-17] MEDS ORDERED: CLAR-7 PO (13:22)
[2019-05-17] MEDS ORDERED: AMOX500C PO (13:23)
[2019-05-17] MEDS ORDERED: oxyCODONE/APAP 5/325 1 TAB TABLET PO ONE ×2 (13:30)
[2019-05-17 14:11] VITALS: BP 128/71
--- NOTE | 2019-05-18 18:06 | PATHOLOGY ---
[facility] Accession Number: [id number] . 01 Material submitted: . gallbladder - GALLBLADDER AND CONTENTS . 01 Clinical history: . None provided . 02 Diagnosis: Gallbladder, laparoscopic cholecystectomy: - Cholelithiasis. - Cholesterolosis. - Chronic cholecystitis. - Reactive changes of gallbladder neck lymph node. . (JPM:mm; 05/18/2019) [facility] 05/18/2019 1611 Local . 02 Comment: There is no evidence of malignancy. . (JPM:mm; 05/18/2019) . 02 Electronically signed: . Jeremy Thacker MD, Pathologist NPI- [id number] . 01 Gross description: . The specimen is received in formalin labeled "Romario, Emily, gallbladder and contents" and consists of an intact gallbladder measuring 7.8 x 2.6 x 2.0 cm. The margin is inked black. Opening reveals a lumen filled with green bile and 2 mulberry yellow-green calculi measuring 0.8-0.9 cm. The mucosa is green with extensive yellow stippling and an average wall thickness of 0.1 cm. No masses are identified. Adjacent the gallbladder neck is a lymph node measuring 0.9 x 0.5 cm. [employer] sections are submitted in A1. ([facility]Y; 05/17/2019) SYU/SYU 05/17/2019 1717 Local . 02 Pathologist provided ICD-10: K80.10 . 02 CPT . 287967 Specimen Comment: A courtesy copy of this report has been sent to [phone] Specimen Comment: Report sent to Performed at: [address], [place], [place] [id number] MD Jero Urrutia MD Phone: [phone] Performed at: 02 [facility] [address], [place] [id number] MD Jeremy Thacker MD Phone: [phone]
== END 2019-05-17 14:45 | disposition home or self-care (01) ==
LOC: SURG 10:29
PROVIDERS: ATTEND Surgery
DX: K80.10 Calculus of gallbladder with chronic cholecystitis without obstruction (principal); K21.9 Gastro-esophageal reflux disease without esophagitis; D64.9 Anemia, unspecified; F32.9 Major depressive disorder, single episode, unspecified
CPT/HCPCS: 47562; 81025; A7015; J0780; J1100; J1885; J2001; J2250; J2405; J2704; J2710; J3010; J3490; J7030; J7120; Q9967

== ENCOUNTER 2019-12-27 11:58 | Emergency (ER) | payer BC ==
[~2019-12-27] VITALS: Ht 170.2 cm; Wt 106.4 kg
[~2019-12-27 11:58] MED LIST changes: +AMOX500C PO; +CLAR-7 PO; -HYDROmorphone 2 MG/ML VIAL IV PRN; +LANS30CA PO; -LIDOCAINE 1% PF 2 ML VIAL. ID PRN; -MORPHINE SULFATE 2 MG/ML VIAL. IV PRN; -ONDANSETRON PF 4 MG/2 ML VIAL. IV PRN; +OXYC-325 PO; -PROCHLORPERAZINE 10 MG/2 ML VIAL. IV PRN; -fentaNYL PF VIAL 100 MCG/2 ML VIAL IV PRN
[2019-12-27] MEDS ORDERED: HYDROcodone/APAP 5/325MG 1 TAB TABLET PO ONE (12:30)
--- NOTE | 2019-12-27 12:35 | PHYS DOC ---
Past Medical History Past Medical History: Asthma, Diabetes-Type II, Gallstones, Other Additional Past Medical Histor: TIFFANY Past Surgical History: Cholecystectomy, Other Additional Past Surgical Histo: "foot surgery" Smoking Status: Never Smoker Alcohol Use: Occasionally General Adult EDM: Chief Complaint: LOWER EXT PAIN HPI: HPI: Patient is a 39 year old female who presents with right lower quadrant cramping nonradiating pain since Thursday has been intermittent. She states it hurts to the point where she had to take her leftover [place]. She states ibuprofen will help a slight bit. Patient currently rates that pain at an 8 out of 10. Patient also complains of right dorsal mid foot and medial ankle pain and tenderness with palpation. He states it does hurt worse with movement. She does have full range of motion. She states is been hurting for the last 2 days. She states is also been swelling. She states that she does not think that she is injured and does not remember injuring it. She has full sensations. She states the pain is sharp nonradiating. No calf tenderness or swelling. There is no swelling at this time in the foot or the extremity. Patient states that she used Eugenio bandage and wrapped it and elevated overnight. She states that standing and moving on it makes the pain worse. Pedal pulses strong and present. Skin is pink warm and dry. Patient has full range of motion of all joints of the foot and ankle. Cap refill is less than 2 seconds. Patient rating the pain an 8 out of 10. Patient has a history of TIFFANY, gallstones, asthma, diabetes, cholecystectomy. Review of Systems: Review of Systems: Constitutional: Denies fever or chills. [] Eyes: Denies change in visual acuity. [] HENT: Denies nasal congestion or sore throat. [] Respiratory: Denies cough or shortness of breath. [] Cardiovascular: Denies chest pain. Right foot edema. [] GI: + Right lower quadrant abdominal pain, denies nausea, vomiting, bloody stools or diarrhea. [] : Denies dysuria. [] Musculoskeletal: Denies back pain. Right ankle and foot joint pain. [] Integument: Denies rash. [] Neurologic: Denies headache, focal weakness or sensory changes. [] Endocrine: Denies polyuria or polydipsia. [] Lymphatic: Denies swollen glands. [] Psychiatric: Denies depression or anxiety. [] Heart Score: Risk Factors: Risk Factors: DM, Current or recent (<one month) smoker, HTN, HLP, family history of CAD, obesity. Risk Scores: Score 0 - 3: 2.5% MACE over next 6 weeks - Discharge Home Score 4 - 6: 20.3% MACE over next 6 weeks - Admit for Clinical Observation Score 7 - 10: 72.7% MACE over next 6 weeks - Early Invasive Strategies Current Medications: Current Medications Medications (Trade) Dose Ordered Sig/Kory Start Time Stop Time Status Last Admin Dose Admin Acetaminophen/ Hydrocodone Bitart (Lortab 5/325) 1 tab 1X ONCE 12/27/19 12:30 12/27/19 12:31 UNV Allergies: Allergies: Allergies Coded Allergies Type Severity Reaction Last Updated Verified Sulfa (Sulfonamide Antibiotics) Allergy Intermediate rash 05/17/19 Yes Physical Exam: PE: Constitutional: Well developed, well nourished, no acute distress, non-toxic appearance. [] HENT: Normocephalic, atraumatic, bilateral external ears normal, oropharynx moist, no oral exudates, nose normal. [] Eyes: PERRLA, EOMI, conjunctiva normal, no discharge. [] Neck: Normal range of motion, no tenderness, supple, no stridor. [] Cardiovascular:Heart rate regular rhythm, no murmur [] Lungs & Thorax: Bilateral breath sounds clear to auscultation [] Abdomen: Bowel sounds normal, soft, right lower quadrant tenderness, no masses, no pulsatile masses. [] Skin: Warm, dry, no erythema, no rash. [] Back: No tenderness, no CVA tenderness. [] Extremities: Right medial ankle and posterior foot tenderness, no cyanosis, no clubbing, ROM intact, no edema. [] Neurologic: Alert and oriented X 3, normal motor function, normal sensory function, no focal deficits noted. [] Psychologic: Affect normal, judgement normal, mood normal. [] Current Patient Data: Vital Signs: Vital Signs Date Time Temp Pulse Resp B/P (MAP) Pulse Ox O2 Delivery O2 Flow Rate FiO2 12/27/19 12:10 98.2 80 14 142/64 (90) 99 Room Air 98.2 EKG: EKG: [] Radiology/Procedures: Radiology/Procedures: [] Impression: [facility] [address] [place] [address] IMAGING REPORT Signed PATIENT: MILI HILL ACCOUNT: [id number] : 1980 LOCATION: ER AGE: 39 SEX: F EXAM STATUS: REG ER ORD. PHYSICIAN: IESHA GRIMES APRN REASON: pain, swelling, no injury PROCEDURE: ANKLE RIGHT 3V Study: 1. CR ANKLE RIGHT 3V 2. CR FOOT RIGHT 3V Indication: Pain and swelling. No known injury. Comparison: None. Findings: Ankle: No acute fracture. Alignment is anatomic. Maintained ankle joint space height. Foot: Mild enthesopathy at the Achilles insertion. Small chronic focus of ossification at the dorsum of the talonavicular joint. No acute fracture or erosive change. Maintained joint spaces. No retained radiopaque foreign body. Impression: Right ankle/foot: No acute osseous abnormality or advanced arthrosis. Electronically signed by: LAUREN RAM MD (12/27/2019 12:50 PM) [id number] DICTATED and SIGNED BY: LAUREN RAM MD DATE: 12/27/[address] [address] IMAGING REPORT Signed PATIENT: MILI HILL ACCOUNT: [id number] : 1980 LOCATION: ER AGE: 39 SEX: F EXAM STATUS: REG ER ORD. PHYSICIAN: IESHA GRIMES APRN REASON: Right lower quad pain PROCEDURE: PELVIS COMPLETE INDICATION: Reason: Right lower quad pain / Spl. Instructions: / History: COMPARISON: CT from March 2019 TECHNIQUE: Grayscale and color ultrasound images uterus and adnexa. FINDINGS: Uterus: 129 x 100 x 99 mm. Endometrial Stripe: 10 mm. Right Ovary: 33 x 20 x 18 mm. Left Ovary: 26 x 21 x 18 mm. Vascular flow identified to bilateral ovaries. Multiple masses within the uterus measuring up to 64 x 57 mm with solid appearance. IMPRESSION: * Vascular flow is seen to the ovaries. * Multiple masses are seen within the uterus. Nonspecific appearance but most common cause would be uterine fibroids. Electronically signed by: Ayaan Muhammad MD (12/27/2019 2:23 PM) [id number] DICTATED and SIGNED BY: AYAAN MUHAMMAD MD DATE: 12/27/[address] [address] IMAGING REPORT Signed PATIENT: MILI HILL ACCOUNT: [id number] : 1980 LOCATION: ER AGE: 39 SEX: F EXAM STATUS: REG ER ORD. PHYSICIAN: IESHA GRIMES APRN REASON: Right lower quad pain PROCEDURE: ABDOMEN LTD INDICATION : Reason: Right lower quad pain / Spl. Instructions: / History: COMPARISON: CT from April 28, 2019 TECHNIQUE: Multiple ultrasound images obtained through the abdomen in grayscale and color. FINDINGS: Liver: Mildly echogenic Gallbladder: Removed IVC: Partially distended at level of liver. Common Bile Duct: 6 mm Pancreas: Limited secondary to overlying structures obscuring. Appendix not seen. Right Kidney: No hydronephrosis. IMPRESSION: * Postcholecystectomy without significant common bile duct dilation. * Liver is echogenic. Nonspecific but can be seen with fatty infiltration. Electronically signed by: Ayaan Muhammad MD (12/27/2019 2:25 PM) The History [id number] DICTATED and SIGNED BY: AYAAN MUHAMMAD MD DATE: 12/27/[address] [id number] IMAGING REPORT Signed PATIENT: MILI HILL ACCOUNT: [id number] : 1980 LOCATION: ER AGE: 39 SEX: F EXAM STATUS: REG ER ORD. PHYSICIAN: IESHA GRIMES APRN REASON: RLQ PAIN PROCEDURE: CT ABD PELV W/ IV CONTRST ONLY Exam: CT of abdomen and pelvis with contrast INDICATION: Right lower quadrant pain TECHNIQUE: Sequential axial images through the abdomen and pelvis obtained following the administration of 75 mL of Isovue-370 IV contrast. Sagittal and coronal reformatted images were reconstructed from the axial data and reviewed. Comparisons: 04/28/2019 FINDINGS: Heart size is normal. No pericardial effusion. Visualized lung bases are clear. No pleural effusion. Liver, spleen, pancreas and adrenals are unremarkable. Gallbladder surgically absent. No perinephric inflammation or hydronephrosis. No renal or ureteral calculi are identified. Bladder is partially distended and not well evaluated. Uterus is enlarged with a heterogenous mass in the uterine parenchyma. Large and small bowel are unremarkable. Appendix is normal. No free intra-abdominal air or fluid. No obstruction. Abdominal aorta has a normal course and caliber. Abdominal vasculature is patent. No enlarged intra-abdominal lymph nodes are identified. No suspicious osseous lesions or acute fractures. IMPRESSION: 1. Fibroid appearance of the uterus with likely a submucosal fibroid incompletely evaluated on the CT. 2. Normal appendix. No acute process identified in the abdomen or pelvis. Exposure: One or more of the following in the visualized dose reduction techniques were utilized for this examination: 1. Automated exposure control 2. Adjustment of the MA and/or KV according to patient size 3. Use of iterative of reconstructive technique Electronically signed by: Luis Ewing MD (12/27/2019 3:59 PM) [id number] DICTATED and SIGNED BY: LUIS EWING MD DATE: 12/27/19 1559 Course & Med Decision Making: Course & Med Decision Making Pertinent Labs and Imaging studies reviewed. (See chart for details) See HPI. Alert and oriented x4. Abdomen is soft but tender with palpation in the right lower quadrant but no rebound tenderness. Skin pink warm and dry. Speaks in full complete sentences. Afebrile. Patient denies fever, nausea, vomiting, diarrhea, back pain, dysuria symptoms, headache, dizziness, cough, shortness of breath, chest pain, focal weakness, vision changes. She is amb ulatory with a steady gait. Ultrasound shows uterine fibroids. Ultrasound of the abdomen cannot see the appendix visualized. I have now ordered a CT abdomen pelvis and patient states she is okay with this. Blood work is unremarkable. Patient will be placed in a right walking boot and I will refer her to orthopedics for a sprain. X-ray of that right foot and ankle show no acute findings. [] CT abdomen pelvis shows no acute findings except for fibroids. Patient to follow-up with a correction officer. Brittaney Disclaimer: Brittaney Disclaimer: This electronic medical record was generated, in whole or in part, using a voice recognition dictation system. Departure Departure Impression: Primary Impression: Foot pain, right Additional Impressions: Ankle pain, right Qualified Codes: M25.571 - Pain in right ankle and joints of right foot Abdominal pain Disposition: HOME, SELF-CARE Condition: STABLE Referrals: CAT VARGAS DO (PCP) ORION SHERMAN MD, DONALD G Jr MD Patient Instructions: Ankle Sprain, Leox-pa-Eekg, Foot Sprain-Brief, Uterine Fibroid, [id number] Additional Instructions: Follow-up with your primary care physician, or the orthopedic for your foot and ankle pain. Also follow-up with a correction officer for your uterine fibroids. Continue taking ibuprofen and try using a heating pad. Scripts Ibuprofen (IBUPROFEN) 600 Mg Tablet 600 MG PO PRN Q6HRS PRN for INFLAMMATION, #20 TAB Prov: IESHA GRIMES APRN 12/27/19 Justicifation of Admission Dx: Justifications for Admission: Justification of Admission Dx: N/A IESHA GRIMES APRN Dec 27, 2019 12:35
[2019-12-27 12:37] LABS: BILIRUBIN,URINE NEGATIVE (NEG); COLOR,URINE YELLOW; NITRITE,URINE NEGATIVE (NEG); PH,URINE 6.5 (<5.0-8.0); PROTEIN,URINE NEGATIVE (NEG-TRACE); UROBILINOGEN,URINE 0.2 mg/dL (0.2 mg/dL)
[2019-12-27 12:48] LABS: CLARITY,URINE CLEAR; SQUAMOUS EPITHELIAL CELL,UR MOD /LPF
[2019-12-27 12:49] LABS: BACTERIA,URINE FEW /HPF (0-FEW); RBC,URINE 0 /HPF (0-2); WBC,URINE OCC /HPF (0-4)
--- NOTE | 2019-12-27 12:53 | RAD ---
Study: 1. CR ANKLE RIGHT 3V 2. CR FOOT RIGHT 3V Indication: Pain and swelling. No known injury. Comparison: None. Findings: Ankle: No acute fracture. Alignment is anatomic. Maintained ankle joint space height. Foot: Mild enthesopathy at the Achilles insertion. Small chronic focus of ossification at the dorsum of the talonavicular joint. No acute fracture or erosive change. Maintained joint spaces. No retained radiopaque foreign body. Impression: Right ankle/foot: No acute osseous abnormality or advanced arthrosis. Electronically signed by: LAUREN RAM MD (12/27/2019 12:50 PM) [id number]
[2019-12-27 13:03] LABS: BASO % 1 % (0-3); EOS # 0.2 x10^3/uL (0.0-0.7); EOS % 4 % (0-3); HEMATOCRIT 33.5 % (36.0-47.0); HEMOGLOBIN 10.8 g/dL (12.0-15.5); LYMPH # 1.8 x10^3/uL (1.0-4.8); LYMPH % 43 % (24-48); MEAN CORPUSCULAR HEMOGLOBIN 22 pg (25-35); MEAN CORPUSCULAR HGB CONC 32 g/dL (31-37); MEAN CORPUSCULAR VOLUME 69 fL (79-100); MONO # 0.4 x10^3/uL (0.0-1.1); MONO % 9 % (0-9); NEUT # 1.9 x10^3/uL (1.8-7.7); NEUT % 44 % (31-73); PLATELET COUNT 340 x10^3/uL (140-400); RED BLOOD COUNT 4.82 x10^6/uL (3.50-5.40); RED CELL DISTRIBUTION WIDTH 15.6 % (11.5-14.5); WHITE BLOOD COUNT 4.3 x10^3/uL (4.0-11.0)
[2019-12-27 13:12] LABS: CREATININE 0.8 mg/dL (0.6-1.0); GFR 97.7; POTASSIUM 3.5 mmol/L (3.5-5.1)
[2019-12-27 13:17] LABS: ALBUMIN 3.5 g/dL (3.4-5.0); ALBUMIN/GLOBULIN RATIO 0.8 (1.0-1.7); TOTAL BILIRUBIN 0.2 mg/dL (0.2-1.0); TOTAL PROTEIN 7.7 g/dL (6.4-8.2)
[2019-12-27 13:30] LABS: ANISOCYTOSIS SLIGHT; MICROCYTOSIS PRESENT; PLT ESTIMATE ADEQUATE (ADEQUATE)
[2019-12-27 13:31] LABS: POLYCHROMASIA OCCASIONAL
--- NOTE | 2019-12-27 14:25 | RAD ---
INDICATION: Reason: Right lower quad pain / Spl. Instructions: / History: COMPARISON: CT from March 2019 TECHNIQUE: Grayscale and color ultrasound images uterus and adnexa. FINDINGS: Uterus: 129 x 100 x 99 mm. Endometrial Stripe: 10 mm. Right Ovary: 33 x 20 x 18 mm. Left Ovary: 26 x 21 x 18 mm. Vascular flow identified to bilateral ovaries. Multiple masses within the uterus measuring up to 64 x 57 mm with solid appearance. IMPRESSION: * Vascular flow is seen to the ovaries. * Multiple masses are seen within the uterus. Nonspecific appearance but most common cause would be uterine fibroids. Electronically signed by: Noel Teresa MD (12/27/2019 2:23 PM) [id number]
--- NOTE | 2019-12-27 14:28 | RAD ---
INDICATION : Reason: Right lower quad pain / Spl. Instructions: / History: COMPARISON: CT from April 28, 2019 TECHNIQUE: Multiple ultrasound images obtained through the abdomen in grayscale and color. FINDINGS: Liver: Mildly echogenic Gallbladder: Removed IVC: Partially distended at level of liver. Common Bile Duct: 6 mm Pancreas: Limited secondary to overlying structures obscuring. Appendix not seen. Right Kidney: No hydronephrosis. IMPRESSION: * Postcholecystectomy without significant common bile duct dilation. * Liver is echogenic. Nonspecific but can be seen with fatty infiltration. Electronically signed by: Noel Teresa MD (12/27/2019 2:25 PM) [id number]
[2019-12-27] MEDS ORDERED: IOHEXOL 300 MG/ML 100ML VIAL. IV ONE (15:15)
[2019-12-27] MEDS ORDERED: IV NORMAL SALINE 1000ML BAG 1,000 ML IV ONE (15:30)
[2019-12-27] MEDS ORDERED: CONTRAST GIVEN. MC PRN (15:30)
--- NOTE | 2019-12-27 16:02 | RAD ---
Exam: CT of abdomen and pelvis with contrast INDICATION: Right lower quadrant pain TECHNIQUE: Sequential axial images through the abdomen and pelvis obtained following the administration of 75 mL of Isovue-370 IV contrast. Sagittal and coronal reformatted images were reconstructed from the axial data and reviewed. Comparisons: 04/28/2019 FINDINGS: Heart size is normal. No pericardial effusion. Visualized lung bases are clear. No pleural effusion. Liver, spleen, pancreas and adrenals are unremarkable. Gallbladder surgically absent. No perinephric inflammation or hydronephrosis. No renal or ureteral calculi are identified. Bladder is partially distended and not well evaluated. Uterus is enlarged with a heterogenous mass in the uterine parenchyma. Large and small bowel are unremarkable. Appendix is normal. No free intra-abdominal air or fluid. No obstruction. Abdominal aorta has a normal course and caliber. Abdominal vasculature is patent. No enlarged intra-abdominal lymph nodes are identified. No suspicious osseous lesions or acute fractures. IMPRESSION: 1. Fibroid appearance of the uterus with likely a submucosal fibroid incompletely evaluated on the CT. 2. Normal appendix. No acute process identified in the abdomen or pelvis. Exposure: One or more of the following in the visualized dose reduction techniques were utilized for this examination: 1. Automated exposure control 2. Adjustment of the MA and/or KV according to patient size 3. Use of iterative of reconstructive technique Electronically signed by: Luis South MD (12/27/2019 3:59 PM) [id number]
[2019-12-27] MEDS ORDERED: IBUP-1007 PO (16:24)
[2019-12-27 16:30] VITALS: BP 123/68
== END 2019-12-27 17:01 | disposition home or self-care (01) ==
LOC: ER 11:58
DX: M25.571 Pain in right ankle and joints of right foot (principal); M79.671 Pain in right foot; R10.31 Right lower quadrant pain; J45.909 Unspecified asthma, uncomplicated; E11.9 Type 2 diabetes mellitus without complications; Z90.49 Acquired absence of other specified parts of digestive tract; Z98.890 Other specified postprocedural states; Z87.442 Personal history of urinary calculi; Z88.2 Allergy status to sulfonamides
CPT/HCPCS: 36415; 73610; 73630; 74177; 76705; 76856; 80053; 81001; 81025; 83690; 85025; 96360; 99285; J7030

== ENCOUNTER 2020-05-28 15:24 | Emergency (ER) | payer BC ==
[~2020-05-28] VITALS: Ht 170.2 cm; Wt 107.7 kg
[~2020-05-28 15:24] MED LIST changes: +IBUP-1007 PO
[2020-05-28 17:05] LABS: BASO # 0.1 x10^3/uL (0.0-0.2); BASO % 1 % (0-3); EOS # 0.2 x10^3/uL (0.0-0.7); EOS % 3 % (0-3); HEMATOCRIT 35.6 % (36.0-47.0); HEMOGLOBIN 11.3 g/dL (12.0-15.5); LYMPH % 33 % (24-48); MEAN CORPUSCULAR HEMOGLOBIN 22 pg (25-35); MEAN CORPUSCULAR HGB CONC 32 g/dL (31-37); MEAN CORPUSCULAR VOLUME 70 fL (79-100); MONO # 0.5 x10^3/uL (0.0-1.1); MONO % 9 % (0-9); NEUT # 3.1 x10^3/uL (1.8-7.7); NEUT % 54 % (31-73); PLATELET COUNT 360 x10^3/uL (140-400); RED BLOOD COUNT 5.07 x10^6/uL (3.50-5.40); RED CELL DISTRIBUTION WIDTH 19.2 % (11.5-14.5); WHITE BLOOD COUNT 5.8 x10^3/uL (4.0-11.0)
--- NOTE | 2020-05-28 17:06 | ED.ADGEN ---
Past Medical History Past Medical History: Anemia, Anxiety, Asthma, Diabetes-Type II, Gallstones, Other Additional Past Medical Histor: SLEEP APNEA Past Surgical History: Cholecystectomy, Other Additional Past Surgical Histo: "foot surgery" Smoking Status: Never Smoker Alcohol Use: Occasionally General Adult EDM: Chief Complaint: ASTHMA HPI: HPI: Patient is a 40 year old female who presents to the Emergency Room complaining of left sided chest pain that feels like aching. Pain improves with deep breaths. She states that last she was sleeping with her CPAP and woke up coughing. Since then she has felt intermittently short of breath and has to remind herself to take deep breaths. She states she has times where she feels like she can't catch her breath. The chest pain started this morning and has been constant since that time. She does have a history of asthma and has been taking her inhaler which does help her symptoms. She states over the weekend she was sleepy and mostly stayed in bed. She has had her COVID vaccines. Review of Systems: Review of Systems: Complete ROS is negative unless otherwise documented in HPI Current Medications: Current Medications Medications (Trade) Dose Ordered Sig/Kory Start Time Stop Time Status Last Admin Dose Admin Dexamethasone Sodium Phosphate (Decadron) 10 mg 1X ONCE 05/28/20 17:15 05/28/20 17:16 DC 05/28/20 17:36 10 MG Ketorolac Tromethamine (Toradol 30mg Vial) 30 mg 1X ONCE 05/28/20 17:15 05/28/20 17:16 DC 05/28/20 17:36 30 MG Allergies: Allergies: Allergies Coded Allergies Type Severity Reaction Last Updated Verified Sulfa (Sulfonamide Antibiotics) Allergy Intermediate rash 05/17/19 Yes Physical Exam: PE: General: Awake, alert, NAD. Well Nourished, well hydrated. Cooperative HEENT: Atraumatic, EOMI, PERRL, airway patent, moist oral mucosa Neck: Supple, trachea midline Respiratory: CTA bilaterally, normal effort, no wheezing/crackles CV: RRR, no murmur, cap refill <2 GI: Soft, nondistended, nontender, no masses MSK: No obvious deformities Skin: Warm, dry, intact Neuro: A&O x3, speech NL, sensory and motor grossly intact, no focal deficits Psych: Normal affect, normal mood, not suicidal or homicidal Current Patient Data: Labs: Laboratory Tests Test 05/28/20 16:48 05/28/20 16:51 White Blood Count 5.8 x10^3/uL (4.0-11.0) Red Blood Count 5.07 x10^6/uL (3.50-5.40) Hemoglobin 11.3 g/dL (12.0-15.5) L Hematocrit 35.6 % (36.0-47.0) L Mean Corpuscular Volume 70 fL (79-100) L Mean Corpuscular Hemoglobin 22 pg (25-35) L Mean Corpuscular Hemoglobin Concent 32 g/dL (31-37) Red Cell Distribution Width 19.2 % (11.5-14.5) H Platelet Count 360 x10^3/uL (140-400) Neutrophils (%) (Auto) 54 % (31-73) Lymphocytes (%) (Auto) 33 % (24-48) Monocytes (%) (Auto) 9 % (0-9) Eosinophils (%) (Auto) 3 % (0-3) Basophils (%) (Auto) 1 % (0-3) Neutrophils # (Auto) 3.1 x10^3/uL (1.8-7.7) Lymphocytes # (Auto) 2.0 x10^3/uL (1.0-4.8) Monocytes # (Auto) 0.5 x10^3/uL (0.0-1.1) Eosinophils # (Auto) 0.2 x10^3/uL (0.0-0.7) Basophils # (Auto) 0.1 x10^3/uL (0.0-0.2) Platelet Estimate Pending D-Dimer ([place]) 0.34 ug/mlFEU (0.00-0.50) Sodium Level 137 mmol/L (136-145) Potassium Level 3.7 mmol/L (3.5-5.1) Chloride Level 102 mmol/L (98-107) Carbon Dioxide Level 28 mmol/L (21-32) Anion Gap 7 (6-14) Blood Urea Nitrogen 12 mg/dL (7-20) Creatinine 1.1 mg/dL (0.6-1.0) H Estimated GFR (Cockcroft-Gault) 67.3 Glucose Level 90 mg/dL (70-99) Calcium Level 8.9 mg/dL (8.5-10.1) Troponin I Quantitative < 0.017 ng/mL (0.000-0.055) CR-Yun-X-Type Natriuretic Peptide 47 pg/mL (0-124) POC Urine HCG, Qualitative Hcg negative (Negative) Laboratory Tests 05/28/20 16:48 Laboratory Tests 05/28/20 16:48 Vital Signs: Vital Signs Date Time Temp Pulse Resp B/P (MAP) Pulse Ox O2 Delivery O2 Flow Rate FiO2 05/28/20 15:27 97.7 74 18 130/69 (89) 99 Room Air 97.7 EKG: EKG: [] Heart Score: Risk Factors: Risk Factors: DM, Current or recent (<one month) smoker, HTN, HLP, family history of CAD, obesity. Risk Scores: Score 0 - 3: 2.5% MACE over next 6 weeks - Discharge Home Score 4 - 6: 20.3% MACE over next 6 weeks - Admit for Clinical Observation Score 7 - 10: 72.7% MACE over next 6 weeks - Early Invasive Strategies Radiology/Procedures: Radiology/Procedures: [] Course & Med Decision Making: Course & Med Decision Making Pertinent Labs and Imaging studies reviewed. (See chart for details) Patient is a 60-year-old female who presents to the emergency room complaining of chest pain. She called her cargo services coordinator today who stated that she needed to be checked out in the emergency room as he did not feel this was related to her asthma. Chest pain has been constant throughout the day. Patient is not hypoxic and is not wheezing on exam. She does not appear to be in any respiratory distress. She is vaccinated against COVID-19. Troponin, BNP, D- dimer were ordered to rule out any cardiac damage or pulmonary embolism. Chest x-ray was ordered to rule out pneumonia. CBC was ordered to rule out anemia. Work-up was unremarkable. Patient's test results and vitals while in the ED we re fully reviewed and discussed with the patient. Patient is stable and at this time does not need admission to the hospital. We have discussed strict return precautions and the importance of following up with their Primary Care Physician. Patient stated understanding and was given an opportunity to ask any questions. Patient is in agreement with tee. Brittaney Disclaimer: Brittaney Disclaimer: This electronic medical record was generated, in whole or in part, using a voice recognition dictation system. Departure Departure Impression: Primary Impression: Chest pain Additional Impression: Costal chondritis Disposition: 01 DC HOME SELF CARE/HOMELESS Condition: STABLE Referrals: CAT VARGAS DO (PCP) Patient Instructions: Costochondritis Scripts Prednisone (PREDNISONE) 50 Mg Tablet 1 TAB PO DAILY, #5 TAB Prov: LYNNE WEISS MD 05/28/20 Problem Qualifiers LYNNE WEISS MD May 28, 2020 17:06
[2020-05-28 17:13] LABS: CALCIUM 8.9 mg/dL (8.5-10.1); CREATININE 1.1 mg/dL (0.6-1.0); GFR 67.3; POTASSIUM 3.7 mmol/L (3.5-5.1)
--- NOTE | 2020-05-28 17:13 | RAD ---
Exam: Chest 2 views INDICATION: Chest pain TECHNIQUE: Frontal and lateral views the chest Comparisons: None FINDINGS: The cardiomediastinal silhouette and pulmonary vessels are within normal limits. The lung and pleural spaces are clear. IMPRESSION: No acute cardiopulmonary process. Electronically signed by: Luis South MD (05/28/2020 5:11 PM) ZULY
[2020-05-28] MEDS ORDERED: DEXAMETHASONE SOD PHOS 4 MG/ML VIAL IVP ONE (17:15)
[2020-05-28] MEDS ORDERED: KETOROLAC 30 MG/ML VIAL. IVP ONE (17:15)
[2020-05-28] MEDS ORDERED: PRED50TA PO (17:54)
[2020-05-28 18:03] LABS: PLT ESTIMATE ADEQUATE (ADEQUATE)
[2020-05-28 18:04] LABS: ANISOCYTOSIS SLIGHT
[2020-05-28 18:05] LABS: HYPOCHROMIA SLIGHT
[2020-05-28 18:06] LABS: MICROCYTOSIS SLIGHT
[2020-05-28 18:07] LABS: TARGET CELLS OCC
[2020-05-28 18:08] LABS: POIKILOCYTOSIS SLIGHT; SCHISTOCYTES FEW
[2020-05-28 18:17] VITALS: BP 133/73
--- NOTE | 2020-05-28 18:27 | EKG ---
[facility] [address] [place] [address] Test Date: 2020-05-28 Test Time: 17:22:56 Pat Name: MILI HILL Department: Room: Gender: F Instrumentation Controls Engineer: : [id number] Requested By: LYNNE WEISS Order Number: [id number] Reading MD: Tom Morton MD Measurements Intervals Jackson Rate: 64 P: 55 GA: 178 QRS: 56 QRSD: 90 T: 24 QT: 404 QTc: 416 Interpretive Statements SINUS RHYTHM Electronically Signed On 05-29-2020 10:35:28 COMPONENT LAB TECH by Tom Morton MD
== END 2020-05-28 18:19 | disposition home or self-care (01) ==
LOC: ER 15:24
DX: M94.0 Chondrocostal junction syndrome [Tietze] (principal); R07.89 Other chest pain; R06.02 Shortness of breath; R05 Cough; D64.9 Anemia, unspecified; F41.9 Anxiety disorder, unspecified; J45.909 Unspecified asthma, uncomplicated; E11.9 Type 2 diabetes mellitus without complications; Z90.49 Acquired absence of other specified parts of digestive tract; Z98.890 Other specified postprocedural states; Z88.2 Allergy status to sulfonamides
CPT/HCPCS: 36415; 71046; 80048; 81025; 83880; 84484; 85025; 85379; 93005; 96374; 96375; 99285; J1100; J1885